=== PATIENT | male | born 1985 | race African-American/Black ===

== ENCOUNTER 2023-08-10 20:15 | Inpatient (IN) | payer MEDICARE ==
[~2023-08-10] VITALS: Ht 167.6 cm; Wt 70.0 kg
[~2023-08-10 20:15] MED LIST: ACET-2247 PO; DOCU-385 PO; FAMO20TA8 PO
[2023-08-10] MEDS ORDERED: HALOPERIDOL 5 MG TABLET PO PRN (23:15)
[2023-08-11 01:48] VITALS: BP 115/72; PULSE 72; RESP 18; TEMP 97.2; O2SAT 98
[2023-08-11] MEDS ORDERED: CloNIDine HCL 0.1 MG TABLET PO PRN (04:15)
[2023-08-11] MEDS ORDERED: IBUPROFEN 400 MG TABLET PO PRN (04:15)
[2023-08-11] MEDS ORDERED: PETROLATUM,WHITE 28 GM JELLY TP PRN (04:15)
[2023-08-11] MEDS ORDERED: ONDANSETRON HCL 4 MG TABLET PO PRN (04:15)
[2023-08-11] MEDS ORDERED: MAGNESIUM HYDROXIDE SUSPENSION 30 ML UDCUP PO PRN (04:15)
[2023-08-11] MEDS ORDERED: GuaiFENesin/D-METHORPHAN [SUGAR-FREE] 200-20MG/10 ML SYRUP UDCUP PO PRN (04:15)
[2023-08-11] MEDS ORDERED: LOPERAMIDE HCL 2 MG CAPSULE PO PRN (04:15)
[2023-08-11] MEDS ORDERED: ACETAMINOPHEN 325 MG TABLET PO PRN (04:15)
[2023-08-11] MEDS ORDERED: NICOTINE 14 MG/24 HOUR PATCH TD PRN (04:15)
[2023-08-11] MEDS ORDERED: MAG HYDROX/ALUMINUM HYD/SIMETH ES 30 ML SUSPENSION UDCUP PO PRN (04:15)
[2023-08-11] MEDS ORDERED: DOCUSATE SODIUM 100 MG CAPSULE PO PRN (04:15)
[2023-08-11] MEDS ORDERED: ALBUTEROL SULFATE HFA 90 MCG/PUFF 8 GM INHALER IH PRN (04:15)
[2023-08-11 08:00] VITALS: TEMP 97.1
[2023-08-11] MEDS: BENZTROPINE MESYLATE 1 MG TABLET PO SCH (16:47)
[2023-08-11] MEDS: TraZODone HCL 150 MG TABLET PO SCH (21:11)
[2023-08-11] MEDS: LORazepam 1 MG TABLET PO PRN (21:11)
[2023-08-11 22:19] VITALS: BP 94/57; PULSE 68; RESP 16; TEMP 97.8; O2SAT 97
[2023-08-12 07:51] LABS: BASOPHILS % (AUTO) 0.3 % (0.0-2.0); EOSINOPHILS % (AUTO) 0.6 % (1.0-6.0); HEMATOCRIT 39.1 % (41-53); HEMOGLOBIN 12.9 g/dL (13.5-17.5); LYMPHOCYTES # (AUTO) 2.5 K/uL (1.0-4.8); LYMPHOCYTES % (AUTO) 18.2 % (22.0-44.0); MEAN CORPUSCULAR HGB CONC 33.2 G/dL (31.0-37.0); MEAN CORPUSCULAR VOLUME 94 fL (80-100); MONOCYTES # (AUTO) 0.5 K/uL (0.1-1.0); MONOCYTES % (AUTO) 3.7 % (2.0-9.0); NEUTROPHILS # (AUTO) 10.4 K/uL (1.8-7.7); NEUTROPHILS % (AUTO) 77.2 % (40.0-70.0); PLATELET COUNT (AUTO) 290 K/uL (150-450); RED BLOOD CELL COUNT(AUTO) 4.18 MIL/uL (4.50-5.90); RED CELL DISTRIBUTION WIDTH 13.2 % (11.5-14.5); WHITE BLOOD COUNT (AUTO) 13.5 K/uL (4.5-11.0)
[2023-08-12 08:07] LABS: HEMOGLOBIN A1C 5.2 % (3.8-5.6)
[2023-08-12 08:18] LABS: ALANINE AMINOTRANSFERASE 53 U/L (12-78); ALBUMIN 3.2 g/dL (3.4-5.0); ALKALINE PHOSPHATASE 68 U/L (46-116); ANION GAP 8 mmol/L (8-16); ASPARTATE AMINOTRANSFERASE 25 U/L (15-37); BILIRUBIN,TOTAL 0.6 mg/dL (0.1-1.0); CALCIUM, TOTAL 9.2 mg/dL (8.8-10.5); CARBON DIOXIDE 27 mmol/L (22-29); CHLORIDE 105 mmol/L (98-107); CHOL/HDL RATIO 5.6 (4.2-7.3); CHOLESTEROL 161 mg/dL (131-200); CREATININE 0.87 mg/dL (0.60-1.30); GLOMERULAR FILTR. RATE CALC > 60 mL/min (>60); GLUCOSE,RANDOM 97 mg/dL (70-110); HDL CHOLESTEROL 29 mg/dL (40-60); LDL CHOL (CALC.) 103 mg/dL (0-130); SODIUM SERUM 140 mmol/L (136-145); THYROID STIMULATING HORMONE 0.75 uIU/mL (0.36-3.74); TOTAL PROTEIN, SERUM 7.1 g/dL (6.4-8.2); TRIGLYCERIDES 145 mg/dL (15-150); UREA NITROGEN, BLOOD 17 mg/dL (7-18)
[2023-08-12] MEDS: FLUoxetine HCL 20 MG CAPSULE PO SCH (08:49)
[2023-08-12] MEDS: CloZAPine 25 MG TABLET PO SCH (08:50)
[2023-08-12 15:40] VITALS: RESP 18
[2023-08-12 22:32] VITALS: RESP 17
[2023-08-13 07:37] LABS: BASOPHILS % (AUTO) 0.5 % (0.0-2.0); EOSINOPHILS % (AUTO) 1.7 % (1.0-6.0); HEMATOCRIT 38.9 % (41-53); HEMOGLOBIN 12.9 g/dL (13.5-17.5); LYMPHOCYTES # (AUTO) 2.3 K/uL (1.0-4.8); LYMPHOCYTES % (AUTO) 28.1 % (22.0-44.0); MEAN CORPUSCULAR HEMOGLOBIN 31.1 pg (26.0-34.0); MEAN CORPUSCULAR HGB CONC 33.2 G/dL (31.0-37.0); MEAN CORPUSCULAR VOLUME 94 fL (80-100); MONOCYTES # (AUTO) 0.4 K/uL (0.1-1.0); MONOCYTES % (AUTO) 4.4 % (2.0-9.0); NEUTROPHILS # (AUTO) 5.3 K/uL (1.8-7.7); NEUTROPHILS % (AUTO) 65.3 % (40.0-70.0); PLATELET COUNT (AUTO) 271 K/uL (150-450); RED BLOOD CELL COUNT(AUTO) 4.15 MIL/uL (4.50-5.90); RED CELL DISTRIBUTION WIDTH 13.3 % (11.5-14.5); WHITE BLOOD COUNT (AUTO) 8.1 K/uL (4.5-11.0)
[2023-08-13] MEDS: CloZAPine 25 MG TABLET PO SCH ×2 (09:40→20:45)
[2023-08-13 13:37] VITALS: BP 106/65; PULSE 85; RESP 16; TEMP 97.2
[2023-08-13 20:58] VITALS: BP 107/60; PULSE 79; RESP 18; TEMP 98.2
[2023-08-13] MEDS: ZOLPIDEM TARTRATE 10 MG TABLET PO PRN (21:43)
[2023-08-14 09:14] VITALS: BP 95/61; PULSE 74; RESP 17; TEMP 97.8; O2SAT 95
[2023-08-14] MEDS: CloZAPine 25 MG TABLET PO SCH ×2 (09:33→21:23)
[2023-08-14 22:34] VITALS: BP 121/71; PULSE 80; RESP 18; TEMP 97.1; O2SAT 97
[2023-08-15 08:07] VITALS: BP 107/66; PULSE 94; RESP 18; TEMP 97.1; O2SAT 98
[2023-08-15] MEDS: CloZAPine 25 MG TABLET PO SCH (08:22)
[2023-08-15 21:20] VITALS: BP 107/70; PULSE 97; RESP 18; TEMP 98.2; O2SAT 97
[2023-08-16 08:09] VITALS: BP 100/60; PULSE 98; RESP 18; TEMP 97.8
[2023-08-16 21:06] VITALS: BP 104/73; PULSE 100; RESP 18; TEMP 97; O2SAT 97
[2023-08-17] MEDS: CloZAPine 25 MG TABLET PO SCH (08:23)
[2023-08-17 09:27] VITALS: BP 96/59; PULSE 89; RESP 16; TEMP 97.7
[2023-08-17 21:18] VITALS: BP 105/69; PULSE 99; RESP 18; TEMP 98.4; O2SAT 97
[2023-08-17] MEDS: CloZAPine 100 MG TABLET PO SCH (21:20)
[2023-08-18] MEDS: CloZAPine 25 MG TABLET PO SCH (09:26)
[2023-08-18 12:18] VITALS: BP 113/66; PULSE 100; RESP 17; TEMP 97.2; O2SAT 97
[2023-08-18] MEDS: CloZAPine 100 MG TABLET PO SCH (21:23)
[2023-08-18 23:30] VITALS: BP 107/66; PULSE 95; RESP 18; TEMP 98; O2SAT 95
[2023-08-19 07:21] LABS: BASOPHILS % (AUTO) 0.7 % (0.0-2.0); EOSINOPHILS % (AUTO) 3.4 % (1.0-6.0); HEMATOCRIT 39.2 % (41-53); HEMOGLOBIN 13.2 g/dL (13.5-17.5); LYMPHOCYTES # (AUTO) 2.8 K/uL (1.0-4.8); MEAN CORPUSCULAR HEMOGLOBIN 31.4 pg (26.0-34.0); MEAN CORPUSCULAR HGB CONC 33.6 G/dL (31.0-37.0); MEAN CORPUSCULAR VOLUME 93 fL (80-100); MONOCYTES # (AUTO) 0.4 K/uL (0.1-1.0); MONOCYTES % (AUTO) 5.2 % (2.0-9.0); NEUTROPHILS # (AUTO) 4.7 K/uL (1.8-7.7); NEUTROPHILS % (AUTO) 56.7 % (40.0-70.0); PLATELET COUNT (AUTO) 292 K/uL (150-450); RED CELL DISTRIBUTION WIDTH 13.3 % (11.5-14.5); WHITE BLOOD COUNT (AUTO) 8.3 K/uL (4.5-11.0)
[2023-08-19] MEDS: CloZAPine 25 MG TABLET PO SCH (08:43)
[2023-08-19 09:46] VITALS: BP 123/74; PULSE 88; RESP 18; TEMP 97; O2SAT 97
[2023-08-19 21:03] VITALS: BP 113/73; PULSE 91; RESP 18; TEMP 97.1; O2SAT 98
[2023-08-19] MEDS: CloZAPine 100 MG TABLET PO SCH (21:16)
[2023-08-20] MEDS: CloZAPine 100 MG TABLET PO SCH (10:14)
[2023-08-20 12:36] VITALS: BP 123/67; PULSE 97; RESP 18; TEMP 97.7; O2SAT 96
[2023-08-20 20:33] VITALS: BP 117/76; PULSE 97; RESP 18; TEMP 97.5; O2SAT 95
[2023-08-21 08:12] VITALS: BP 115/79; PULSE 82; RESP 17; TEMP 97.8; O2SAT 98
[2023-08-21 21:11] VITALS: BP 116/76; PULSE 98; RESP 19; TEMP 97.3; O2SAT 99
[2023-08-22] MEDS: CloZAPine 25 MG TABLET PO SCH (08:29)
[2023-08-22 08:33] VITALS: BP 123/77; PULSE 100; RESP 18; TEMP 98; O2SAT 98
[2023-08-22 20:54] VITALS: BP 124/76; PULSE 97; RESP 18; TEMP 97.1; O2SAT 97
[2023-08-22] MEDS: CloZAPine 100 MG TABLET PO SCH (21:01)
[2023-08-23 08:02] VITALS: BP 134/82; PULSE 95; RESP 19; TEMP 97.7; O2SAT 97
[2023-08-23] MEDS: CloZAPine 25 MG TABLET PO SCH (10:06)
[2023-08-23 21:41] VITALS: BP 124/83; PULSE 62; RESP 18; TEMP 97.1; O2SAT 97
[2023-08-23] MEDS: CloZAPine 100 MG TABLET PO SCH (22:13)
[2023-08-24] MEDS: CloZAPine 100 MG TABLET PO SCH ×2 (08:57→21:27)
[2023-08-24 12:17] VITALS: BP 126/79; PULSE 107; RESP 18; TEMP 97.5; O2SAT 96
[2023-08-24 22:11] VITALS: BP 119/73; PULSE 98; RESP 19; TEMP 97.7; O2SAT 98
[2023-08-25 08:06] VITALS: BP 122/81; PULSE 80; RESP 18; TEMP 97.6
[2023-08-25 21:46] VITALS: BP 121/76; PULSE 72; RESP 18; TEMP 97.8; O2SAT 99
[2023-08-26 08:44] LABS: BASOPHILS % (AUTO) 1.1 % (0.0-2.0); HEMATOCRIT 41.8 % (41-53); HEMOGLOBIN 13.8 g/dL (13.5-17.5); LYMPHOCYTES # (AUTO) 2.6 K/uL (1.0-4.8); LYMPHOCYTES % (AUTO) 35.5 % (22.0-44.0); MEAN CORPUSCULAR HEMOGLOBIN 30.9 pg (26.0-34.0); MEAN CORPUSCULAR VOLUME 94 fL (80-100); MONOCYTES # (AUTO) 0.3 K/uL (0.1-1.0); MONOCYTES % (AUTO) 3.8 % (2.0-9.0); NEUTROPHILS # (AUTO) 4.1 K/uL (1.8-7.7); NEUTROPHILS % (AUTO) 55.6 % (40.0-70.0); PLATELET COUNT (AUTO) 271 K/uL (150-450); RED BLOOD CELL COUNT(AUTO) 4.46 MIL/uL (4.50-5.90); RED CELL DISTRIBUTION WIDTH 13.3 % (11.5-14.5); WHITE BLOOD COUNT (AUTO) 7.3 K/uL (4.5-11.0)
[2023-08-26 10:03] VITALS: BP 152/93; PULSE 110; RESP 18; TEMP 98; O2SAT 97
[2023-08-26] MEDS ORDERED: TRAZ-283 PO (10:50)
[2023-08-26] MEDS ORDERED: CLOZ100T61 PO ×2 (10:50)
[2023-08-26] MEDS ORDERED: FLUO20CA36 PO (10:50)
[2023-08-26] MEDS ORDERED: BENZ1TAB84 PO (10:50)
== END 2023-08-26 17:27 | disposition home or self-care (01) | DRG 885 ==
LOC: 3EX 20:15
PROVIDERS: ADMIT Psychiatry & Neurology Child & Adolescent Psychiatry; ATTEND Psychiatry & Neurology Child & Adolescent Psychiatry
PROC: GZHZZZZ Group Psychotherapy (ICD-10-PCS; principal; 2023-08-11)
DX: F25.0 Schizoaffective disorder, bipolar type (principal); K59.00 Constipation, unspecified; D72.829 Elevated white blood cell count, unspecified; F29 Unspecified psychosis not due to a substance or known physiological condition; G89.29 Other chronic pain; F19.10 Other psychoactive substance abuse, uncomplicated; D64.9 Anemia, unspecified; Z79.899 Other long term (current) drug therapy
CPT/HCPCS: 80053; 80061; 83036; 84443; 85025; 87081; G0378